=== PATIENT | female | born 1960 | race Caucasian/White ===

== ENCOUNTER 2016-04-03 07:08 | Day surgery (SDC) | payer OTHER, BC ==
[2016-04-02 14:37] VITALS: BMI 32.1
[2016-04-03] MEDS ORDERED: LIDOCAINE HCL/PF 1% SDV 5ML VIAL ONE (07:42)
[2016-04-03] MEDS ORDERED: PROPOFOL 20 ML ONE (07:42)
[2016-04-03 08:26] VITALS: TEMP 97.6
[2016-04-03 09:32] VITALS: BP 124/75; PULSE 70
--- NOTE | 2016-04-06 12:23 | PATH ---
Surgical Pathology Report Patient Name: COLLEEN SORENSEN [facility]. Rec. #: [id number] /Age/Gender: 1960 (Age: 55) / F Account: [id number] Location: [facility]OS[facility] Taken: 04/03/2016 Received: 04/03/2016 Reported: 04/06/2016 Physicians: Franchesca Thomas M.D. Specimen(s) Received A: BX 2ND PORTION DUODENUM & DUODENAL BULB B: BX ANTRUM C: BX DISTAL ESOPHAGUS D: BX MID ESOPHAGUS Clinical History GERD, dysphagia GERD Final Diagnosis A. DUODENUM, SECOND PORTION AND BULB, BIOPSY: DUODENAL MUCOSA WITH CHRONIC INFLAMMATION AND FOCAL COSTA'S GLANDS HYPERPLASIA. NO HISTOLOGIC EVIDENCE OF GLUTEN SENSITIVE ENTEROPATHY (CELIAC DISEASE). B. STOMACH, ANTRUM, BIOPSY: GASTRIC ANTRAL AND OXYNTIC MUCOSA WITH MODERATE CHRONIC GASTRITIS WITH FOCAL INTESTINAL METAPLASIA AND REACTIVE GASTROPATHY. NEGATIVE FOR DYSPLASIA. IMMUNOSTAIN FOR H. PYLORI IS NEGATIVE FOR ORGANISMS. C. ESOPHAGUS, DISTAL, BIOPSY: SQUAMOUS EPITHELIUM WITH CHRONIC INFLAMMATION AND MARKED REFLUX TYPE CHANGES. NO COLUMNAR EPITHELIUM PRESENT (NO INTESTINAL METAPLASIA/FULLER'S ESOPHAGUS IDENTIFIED). D. ESOPHAGUS, MID, BIOPSY: SQUAMOUS EPITHELIUM WITH CHRONIC INFLAMMATION AND MARKED REFLUX TYPE CHANGES. NO EVIDENCE OF EOSINOPHILIC ESOPHAGITIS. Electronically Signed Kwabena Walsh M.D. Gross Description A. Received in formalin, labeled "biopsy second portion of duodenum and duodenal bulb" are 3 gupta, irregular portions of soft tissue ranging from 0.3-0.5 cm in greatest dimension. The specimens are submitted in toto in one cassette. B. Received in formalin, labeled "biopsy antrum" are 3 gupta, irregular portions of soft tissue ranging from 0.3-0.6 cm in greatest dimension. The specimens are submitted in toto in one cassette. C. Received in formalin, labeled "biopsy distal esophagus" are 3 gupta, irregular portions of soft tissue ranging from 0.2-0.4 cm in greatest dimension. The specimens are submitted in toto in one cassette. D. Received in formalin, labeled "biopsy mid esophagus" is a gupta, irregular portion of soft tissue measuring 0.5 cm in greatest dimension. The specimen is submitted in toto in one cassette. 04/03/201604/03/2016
== END 2016-04-03 09:31 | disposition home or self-care (01) ==
LOC: JASU-ENDO 07:08
PROVIDERS: ATTEND Internal Medicine Gastroenterology
PROC: 0DB68ZX Excision of Stomach, Via Natural or Artificial Opening Endoscopic, Diagnostic (ICD-10-PCS; 2016-04-03)
PROC: 0DB98ZX Excision of Duodenum, Via Natural or Artificial Opening Endoscopic, Diagnostic (ICD-10-PCS; 2016-04-03)
PROC: 0DB28ZX Excision of Middle Esophagus, Via Natural or Artificial Opening Endoscopic, Diagnostic (ICD-10-PCS; 2016-04-03)
PROC: 0DB38ZX Excision of Lower Esophagus, Via Natural or Artificial Opening Endoscopic, Diagnostic (ICD-10-PCS; principal; 2016-04-03 08:00)
DX: K21.9 Gastro-esophageal reflux disease without esophagitis (principal); R12 Heartburn; R13.10 Dysphagia, unspecified
CPT/HCPCS: 88305-TC; 88342-TC

== ENCOUNTER 2016-11-02 05:09 | Inpatient (IN) | payer OTHER, BC ==
[2016-10-23 15:30] VITALS: BMI 34.9
[2016-11-02] MEDS ORDERED: BUPIVACAINE HCL/PF 0.5% (5MG/ML) 10 ML VIAL ONE (07:19)
[2016-11-02] MEDS ORDERED: methylPREDNISolone ACET (DEPO) 80 MG/1 ML VIAL ONE (07:19)
[2016-11-02] MEDS ORDERED: MIDAZOLAM HCL 2 MG/2 ML SINGLE DOSE VIAL ONE (07:30)
[2016-11-02] MEDS ORDERED: ROCURONIUM BROMIDE 50 MG/5 ML VIAL ONE (07:33)
[2016-11-02] MEDS ORDERED: SUCCINYLCHOLINE CHLORIDE 200 MG/10 ML VIAL ONE (07:33)
[2016-11-02] MEDS ORDERED: PROPOFOL 20 ML ONE ×12 (07:33→10:36)
--- NOTE | 2016-11-02 08:03 | HP ---
History & Physical Update - History History: No Change - Physical Physical: No Change - Assessment Assessment: No Change - Plan Plan: No Change (This is my first time meeting the patient. Introduced myself and informed patient that I will be assisting Dr. Marshall with todays procedure. She is fine with it.)
[2016-11-02] MEDS ORDERED: BACITRACIN 50,000 UNITS VIAL NR ONE (08:15)
[2016-11-02] MEDS ORDERED: THROMBIN (BOVINE) 5,000 UNIT VIAL TP ONE (08:15)
[2016-11-02] MEDS ORDERED: ceFAZolin SODIUM 1 GM VIAL IVPB ONE (08:22)
[2016-11-02] MEDS ORDERED: BENZOIN/ALOE VERA/STORAX/TOLU 58 ML BOTTLE ONE (08:41)
[2016-11-02] MEDS ORDERED: CEFAZOLIN 2 GM in DEXTROSE 5%-WATER - 100 ML IVPB ONE (08:45)
[2016-11-02] MEDS ORDERED: LIDOCAINE HCL/PF 2% SDV 5ML VIAL ONE (08:52)
[2016-11-02] MEDS ORDERED: DEXAMETHASONE SOD PHOSPHATE 4 MG/1 ML VIAL ONE (08:52)
[2016-11-02] MEDS ORDERED: ceFAZolin SODIUM 1 GM VIAL ONE ×3 (08:52→22:48)
[2016-11-02] MEDS ORDERED: ONDANSETRON 4 MG/2 ML VIAL ONE (08:52)
[2016-11-02] MEDS ORDERED: DEXAMETHASONE SOD PHOSPHATE 4 MG/1 ML VIAL IVPUSH PRN (10:29)
[2016-11-02] MEDS ORDERED: ONDANSETRON 4 MG/2 ML VIAL IVPUSH PRN ×2 (10:29)
[2016-11-02] MEDS ORDERED: PROMETHAZINE HCL 25 MG/1 ML VIAL IVPB PRN (10:29)
--- NOTE | 2016-11-02 11:07 | OP ---
Operative Note - Note: Operative Date: 11/02/16 Pre-Operative Diagnosis: C5-6 and C6-7 DDD; stenosis; radiculopathy Operation: Microdissection; C5-6 and C6-7 discectomies; partial corpectomies C5 , C6, C7; foramenotomies; interbody fusion C5-6 and C6-7; interbody fusion C5-6 and C6-7; anterior instrumentation C5-6-7; traction tongs Findings: degenerative disc space narrowing C5-6 and C6-7; foramenal stenosis B C5-6, C6-7 ; spondylosis; sensitive roots R > L, C5-6 >C6-7 Implants: [place]well 7 mm lordotic interbody implant C6-7 and 6 mm lordotic implants C5-6; Bret spine [employer] Select 40 mm plate and 14 mm screws ( variable angle C5,6 and fixed angle c7) Post-Operative Diagnosis: Same as Pre-op Surgeon: Sam Marshall Hospice Chaplain: Kayden Crawford Anesthesiologist/HISTORY CARD CLERK: Zamzam Salvador MD Anesthesia: General Specimens Removed: C5-6 and C6-7 disc Estimated Blood Loss (mls): 25
[2016-11-02] MEDS ORDERED: ACETAMINOPHEN 325 MG TABLET (FP) PO PRN (11:12)
[2016-11-02] MEDS ORDERED: diazePAM 5 MG TABLET PO SCH ×2 (11:30→15:10)
--- NOTE | 2016-11-02 11:46 | SURG ---
Surgery Surgery Attendant Note Surgery Attendant: Kayden Crawford PA-C Date of Service: 11/02/16 Diagnosis: C5-6 and C6-7 DDD; stenosis; radiculopathy Procedure: Microdissection; C5-6 and C6-7 discectomies; partial corpectomies C5, C6, C7; foramenotomies; interbody fusion C5-6 and C6-7; interbody fusion C5-6 and C6-7; anterior instrumentation C5-6-7; traction tongs I was present for the entirety of the operative procedure. For further detail, please refer to operative report. Visit type - Case Type Case Type: Scheduled Admission - New patient This patient is new to me today: Yes Date on this admission: 11/02/16
[2016-11-02] MEDS ORDERED: HYDROmorphone *PCA* 10MG/50ML DISP.SYRIN PCA ONE (11:49)
--- NOTE | 2016-11-02 11:52 | PN ---
Progress Note (short form) - Note Progress Note: NEUROSURGERY In PACU AF, VSS; O2 sat 100% Mild incisional pain; mild sore throat Hands feel "better" PE: CV-RR; lungs- CTA; And- benign; Ext- NO DVT CN- intact; Motor- 5/5 B UE/LE; Sensation- intact LT Dressing C/D/I SCD's ordered for DVT prophylaxis Iv abx x 24 hours FIndings d/w pt and family
[2016-11-02] MEDS: HYDROmorphone *PCA* 10MG/50ML DISP.SYRIN PCA SCH ×2 (12:08→15:11)
[2016-11-02] MEDS: D5-1/2NS+20 MEQ KCL - 1,000 ML IV SCH ×2 (15:00→21:52)
[2016-11-02] MEDS: DOCUSATE SODIUM 100 MG CAPSULE (FP) PO SCH ×2 (17:47→21:48)
[2016-11-02] MEDS ORDERED: DEXTROSE 5%-WATER - 50 ML IVPB ONE ×2 (18:08→22:49)
[2016-11-02] MEDS: CEFAZOLIN 1 GM in DEXTROSE 5%-WATER - 50 ML IVPB SCH (18:15)
[2016-11-02] MEDS: ALPRAZolam 2 MG TABLET PO SCH ×2 (21:49→21:51)
[2016-11-03] MEDS: HYDROmorphone *PCA* 10MG/50ML DISP.SYRIN PCA SCH ×4 (01:01→23:16)
[2016-11-03] MEDS: CEFAZOLIN 1 GM in DEXTROSE 5%-WATER - 50 ML IVPB SCH (01:20)
[2016-11-03] MEDS: LEVOTHYROXINE NA 75 MCG TABLET (FP) PO SCH (06:41)
[2016-11-03] MEDS: ALPRAZolam 2 MG TABLET PO SCH ×3 (06:41→21:26)
[2016-11-03] MEDS: DOCUSATE SODIUM 100 MG CAPSULE (FP) PO SCH ×3 (06:41→21:26)
--- NOTE | 2016-11-03 08:07 | PN ---
Progress Note (short form) - Note Progress Note: NEUROSURGERY POD #1 Mild incisional pain Mild sore throat B hands better AF, VSS PE: CV- RRR; Lungs: CTA; Abd-benign; Ext- no sign of DVT CN- intact; Motor 4+/5 B UE/LE at least; Sensation- intact to LT Dressing C/D/I- changed C spine x-rays today OOB/PT Adv diet Intra-op findings d/w pt All questions answered I
[2016-11-03] MEDS: PANTOPRAZOLE 20 MG TABLET (FP) PO SCH (09:36)
[2016-11-03] MEDS: FLUoxetine HCL 20 MG CAPSULE (FP) PO SCH (09:36)
[2016-11-03] MEDS: D5-1/2NS+20 MEQ KCL - 1,000 ML IV SCH ×2 (09:37→13:45)
--- NOTE | 2016-11-03 12:33 | PN ---
Progress Note (short form) - Note Progress Note: Anesthesia POD#1 S/P Anterior Cervical Decompression and fusion under GA VSS, using APPLICATION SPECIALIST,no N/V. Walking around. Agree to discontinue the APPLICATION SPECIALIST tomrrow. A/P Continue APPLICATION SPECIALIST today,consider discontinuation tomorrow. No complications seen. Eileen Peterson MD.
--- NOTE | 2016-11-03 13:28 | PATH ---
Surgical Pathology Report Patient Name: COLLEEN SORENSEN Med. Rec. #: [id number] /Age/Gender: 1960 (Age: 55) / F Account: [id number] Location: [facility]/SURG Taken: 11/02/2016 Received: 11/02/2016 Reported: 11/03/2016 Physicians: Sam Marshall M.D. Specimen(s) Received LEVEL 6+7 CERVICAL DISC Clinical History Cervical radiculopathy Final Diagnosis INTERVERTEBRAL DISC, C6-7, ANTERIOR CERVICAL DECOMPRESSION: CARTILAGE WITH DEGENERATIVE CHANGES. Electronically Signed Kwabena Walsh M.D. Gross Description Received in formalin labeled "C6+7 cervical disc" is a 2.5 x 2.0 x 0.3 cm aggregate of gupta fragments of fibrocartilaginous tissue. A development representative portion is submitted in one cassette. /11/02/201611/02/2016
[2016-11-03] MEDS ORDERED: SODIUM CHLORIDE 1,000 ML IV SCH (16:30)
[2016-11-04] MEDS: ALPRAZolam 2 MG TABLET PO SCH (06:18)
[2016-11-04] MEDS: DOCUSATE SODIUM 100 MG CAPSULE (FP) PO SCH (06:19)
[2016-11-04] MEDS: LEVOTHYROXINE NA 75 MCG TABLET (FP) PO SCH (06:19)
[2016-11-04] MEDS ORDERED: oxyCODONE HCL 5 MG TABLET PO PRN ×3 (08:36→08:40)
--- NOTE | 2016-11-04 08:40 | PN ---
Progress Note, Physician Chief Complaint: Pt pain controlled with GROCERY STORE BAGGER, no complications seen. - Current Medication List Current Medications: Active Medications Acetaminophen (Tylenol -) 650 mg PO Q6H PRN PRN Reason: FEVER OR PAIN Alprazolam (Xanax -) 1 mg PO TID [facility] Last Admin: 11/04/16 06:18 Dose: 1 mg Dexamethasone Sodium Phosphate (Decadron Injection -) 4 mg IVPUSH ONCE PRN PRN Reason: NAUSEA AND/OR VOMITING Diphenhydramine HCl (Benadryl Injection -) 12.5 mg IVPUSH ONCE PRN PRN Reason: FOR ITCHING Docusate Sodium (Colace -) 100 mg PO TID [facility] Last Admin: 11/04/16 06:19 Dose: 100 mg Fluoxetine HCl (Prozac -) 20 mg PO DAILY [facility] Last Admin: 11/03/16 09:36 Dose: 20 mg Hydromorphone HCl (Dilaudid Job Analyst -) 10 mg GROCERY STORE BAGGER GR[employer] STORE BAGGER [facility] PRN Reason: Protocol Stop: 11/09/16 10:30 Last Admin: 11/03/16 23:16 Dose: 10 mg Sodium Chloride (Normal Saline -) 1,000 mls @ 42 mls/hr IV ASDIR [facility] Last Admin: 11/03/16 16:39 Dose: 42 mls/hr Levothyroxine Sodium (Synthroid -) 75 mcg PO DAILY@0700 [facility] Last Admin: 11/04/16 06:19 Dose: 75 mcg Pantoprazole Sodium (Protonix -) 20 mg PO DAILY [facility] Last Admin: 11/03/16 09:36 Dose: 20 mg Promethazine HCl (Phenergan Injection -) 12.5 mg IVPB Q6H PRN PRN Reason: NAUSEA AND/OR VOMITING - Objective Vital Signs: Vital Signs Temperature 99.7 F H 11/04/16 06:00 Pulse Rate 89 11/04/16 06:00 Respiratory Rate 20 11/04/16 06:00 Blood Pressure 111/72 11/04/16 06:00 O2 Sat by Pulse Oximetry (%) 97 11/03/16 21:00 Constitutional: Yes: Well Nourished, No Distress, Calm Musculoskeletal: Yes: WNL Neurological: Yes: WNL, Alert, Oriented Assessment/Plan POD#2 s/p C5-7 anterior cervical decompression and fusion under GA. Doing well. D/C GROCERY STORE BAGGER. Start oral pain meds. Oxycodone 10mg q6h.
--- NOTE | 2016-11-04 08:46 | PN ---
Progress Note (short form) - Note Progress Note: NEUROSURGERY POD #2 Mild incisional pain Mild sore throat B hands better Tmax 99.7, AF, VSS PE: CV- RRR; Lungs: CTA; Abd-benign; Ext- no sign of DVT CN- intact; Motor 4+/5 B UE/LE at least; Sensation- intact to LT Dressing C/D/I; some skin edge sensitivity C spine x-rays - satisfactory implant positions; post-op changes OOB/PT Reg diet Intra-op findings d/w pt again Keflex for one week given h/o prior foot injury/infection F/u plan and discharge instructions given Pt requests oxycodone, will change from hydrocodone All questions answered I
[2016-11-04] MEDS ORDERED: PT OWN MED DRAWER 7, Y5N ONE (09:32)
[2016-11-04] MEDS: FLUoxetine HCL 20 MG CAPSULE (FP) PO SCH (09:44)
[2016-11-04] MEDS: PANTOPRAZOLE 20 MG TABLET (FP) PO SCH (09:44)
[2016-11-04 10:13] VITALS: BP 112/74; PULSE 80; TEMP 98.6
--- NOTE | 2016-11-04 10:37 | OP ---
DATE OF OPERATION: 11/02/2016 PREOPERATIVE DIAGNOSES: 1. C5-6 and C6-7 degenerative disk disease with spinal stenosis and cervical radiculopathy. 2. Lumbar spinal stenosis and spondylolisthesis. POSTOPERATIVE DIAGNOSES: 1. C5-6 and C6-7 degenerative disk disease with spinal stenosis and cervical radiculopathy. 2. Lumbar spinal stenosis and spondylolisthesis. ATTENDING SURGEON: Sam Marshall MD MULE DEVELOPER: COOPER De La Cruz ANESTHESIA: General endotracheal. ANESTHESIOLOGIST: Zamzam Salvador MD ESTIMATED BLOOD LOSS: 125 mL PROCEDURE: 1. Preoperative placement and postoperative removal of cranial traction tongs for intraoperative traction (16557). 2. Anterior cervical diskectomy, C5-6 and C6-7. 3. Partial corpectomies at C5, C6, and C7 for cervical spinal cord and proximal nerve root decompression bilaterally at C4-5, C5-6, and C6-7 (60371, 46951, and 40225). 4. Anterior cervical interbody fusion, C5-6 and C6-7 (56399, 31935). 5. Microsurgical dissection with the operative microscope and microsurgical techniques (90463). 6. Utilization of anterior cervical interbody implant with plating system at C5-6 and C6-7 (28741, 50062). FINDINGS: 1. Severe degenerative disk space narrowing at C5-6 and C6-7. 2. Extensive osteophyte with spinal cord and proximal cervical root impingement. 3. Sensitive cervical nerve roots. INDICATION: The patient is a 55-year-old female with intractable neck pain and cervical radiculopathy. Because of intractable symptoms and failure of conservative treatment, she was consented for anterior cervical decompression and fusion with instrumentation. The risks of the procedure include, but are not limited to bleeding to, infection, dural tear with CSF leak, neurological injury, increased thromboembolic risk, and the risks of general anesthesia. The patient understands the indications for the procedure, the procedure in detail, risks and benefits, and alternatives for the treatment of her lumbar condition and wishes to proceed. No guarantees were given for a favorable outcome. Intraoperative SSEP, EMG, and MEP signals were monitored. The risks of surgery include, but are not limited to, bleeding, infection, dural tear with CSF leak, neurological injury, increased thromboembolic risk, hoarseness, swallowing difficulties, the risk of general anesthesia. No guarantees were given for a favorable outcome. PROCEDURE IN DETAIL: After the patient was taken to the operating room, she was placed in supine position. After general anesthesia was induced and appropriate monitoring lines were placed, her head was secured in Garcia horseshoes in neutral position. Shoulders were taped down to the side. The cranial traction tongs were applied with bacitracin ointment. No traction weight was placed until baseline neuromonitoring signals were obtained. Because of the patient's childhood history of seizure, motor evoked potential was not stimulated. After a localizing x-ray was obtained, the patient was sterilely prepped and draped. An incision was now opened with a number 10 blade. An approximately 1-3/4-inch incision was opened. Skin was undermined with Metzenbaum scissors. A self-retaining retractor was inserted at this time. The incision was opened longitudinally with open Metzenbaum scissors. Dissection then proceeded medial to the carotid sheath and lateral to the trachea and esophagus. The omohyoid muscle was retracted medially. At this point, the prevertebral fascia was dissected free. The longus coli muscle was reflected laterally and the edges were coagulated with bipolar electrocautery. A self-retaining radiolucent retractor system was inserted. At this point, the spinal needle was inserted into the C5-6 and C6-7, and another localizing x-ray was obtained. The disk annulus was incised with a number 15 blade but the disk space was so collapsed that the number 15 blade could not cut easily into it. The anterior osteophytes were removed with a rongeur and high-speed pneumatic drill. This annulus with disk material was then cut with a number 15 blade. The disk material was removed with a combination of straight and angled curettes, pituitary rongeur and a Kerrison rongeur. A microscope was brought in at this point for both illumination and magnification. Microsurgical techniques were utilized. Partial corpectomies of the bottom of the vertebral body of C5, the bottom of the vertebral body of C6, and the top of the vertebral body of C7 were carried out with a high-speed pneumatic drill and Kerrison rongeur. Bilateral foraminotomies were carried out at C5-6 and C6-7. The posterior longitudinal ligament was dissected free with an angled curette and resected with Kerrison rongeur. Foraminotomy was accomplished with angled curette and Kerrison rongeur similarly. Epidural hemostasis was obtained with thrombin-filled powder, Gelfoam, and bipolar electrocautery. The traction was slowly increased, first to 5 pounds and then to 10 pounds. The AP diameter of the vertebral body was found to be about 16 mm. The vertical interbody space after decompression was found to be 7 mm at C6-7 and 6 mm at C5-6. Lordotic implants were placed at C6-7 and C5-6. A similar 20-mm titanium plate from [employer] was secured with fixation pins and a screw hole was drilled with the hand-held guide and hand-held drill. A 14-mm variable-angle screw was used at C5 and C6 was a medial angle of 8 degrees. Fixed-angle screws were used at C7 bilaterally. The locking mechanisms were engaged after the screws were tightened. The wounds were irrigated with a copious amount of irrigation. A lateral cervical spine x-ray demonstrated satisfactory position of the implant. At this point, after final SSEP and EMG signals were taken, there was no aberrant signal activity. SSEP signal remained stable throughout. The wounds were once again irrigated and a layer of Surgicel was laid on top of the dissection track as well as the plating system. The esophagus the carotid sheath was inspected and they were all in good condition. The platysmal muscle was closed with 3-0 Vicryl suture, as was the subcutaneous fascia. Skin was closed with 4-0 Vicryl running subcuticular suture. Steri-Strips and sterile occlusive dressing were applied. The patient tolerated the procedure well and was extubated in the operating room. She was moving the bilateral upper and lower extremities well while in the recovery room. All needle and lap counts were correct. The OR timeout procedure was followed. The patient received 1 dose of 1 g of Ancef prior to the procedure. She also received 10 mg of dexamethasone prior to the incision. The patient had had SCDs placed on her which were used during the procedure. The family was updated on the intraoperative findings. SAM MARSHALL M.D. JAYNE/[id number]
[2016-11-04] MEDS ORDERED: CEPHALEXIN MONOHYDRATE 500 MG CAPSULE (UD) PO SCH (12:00)
== END 2016-11-04 10:26 | disposition home or self-care (01) | DRG 473 ==
LOC: JSAMEDAYSX 05:09 → EDSTATUS 08:00 → J8W 13:56
PROVIDERS: ADMIT Neurological Surgery; ATTEND Neurological Surgery
PROC: 01N10ZZ Release Cervical Nerve, Open Approach (ICD-10-PCS; 2016-11-02)
PROC: 0RT30ZZ Resection of Cervical Vertebral Disc, Open Approach (ICD-10-PCS; 2016-11-02)
PROC: 0RG20A0 Fusion of 2 or more Cervical Vertebral Joints with Interbody Fusion Device, Anterior Approach, Anterior Column, Open Approach (ICD-10-PCS; principal; 2016-11-02 08:00)
DX: M50.122 Cervical disc disorder at C5-C6 level with radiculopathy (principal); M48.02 Spinal stenosis, cervical region; M43.12 Spondylolisthesis, cervical region; M50.123 Cervical disc disorder at C6-C7 level with radiculopathy; J44.9 Chronic obstructive pulmonary disease, unspecified; K21.9 Gastro-esophageal reflux disease without esophagitis; E66.8 Other obesity; Z68.34 Body mass index [BMI] 34.0-34.9, adult; M54.89 Other dorsalgia; M13.88 Other specified arthritis, other site
CPT/HCPCS: 72050-TC; 86850; 86900; 86901; 88304-TC; 94010; 94760; 97116-GP; 97161-GP

== ENCOUNTER 2017-08-02 05:05 | Inpatient (IN) | payer OTHER, BC ==
[2017-07-23 14:45] VITALS: BMI 34.5
[~2017-08-02 05:05] MED LIST: BACITRACIN 15 GM TUBE TOPICAL OINTMENT TP ONE; BUPIVACAINE HCL/PF 0.5% (5MG/ML) 10 ML VIAL NR ONE
[2017-08-02] MEDS ORDERED: BACITRACIN 15 GM TUBE TOPICAL OINTMENT ONE (07:06)
[2017-08-02] MEDS ORDERED: THROMBIN (BOVINE) 5,000 UNIT VIAL TP ONE ×2 (07:06→09:01)
[2017-08-02] MEDS ORDERED: MIDAZOLAM HCL 2 MG/2 ML SINGLE DOSE VIAL ONE (08:08)
[2017-08-02] MEDS ORDERED: fentaNYL CITRATE 250 MCG/5 ML VIAL ONE (08:09)
[2017-08-02] MEDS ORDERED: ROCURONIUM BROMIDE 50 MG/5 ML VIAL ONE ×2 (08:13→09:03)
[2017-08-02] MEDS ORDERED: PROPOFOL 20 ML ONE ×17 (08:13→12:07)
[2017-08-02] MEDS ORDERED: ceFAZolin SODIUM 1 GM VIAL IVPB ONE (08:14)
[2017-08-02] MEDS ORDERED: BACITRACIN 50,000 UNITS VIAL NR ONE (09:01)
[2017-08-02] MEDS ORDERED: BUPIVACAINE HCL/PF 0.5% (5MG/ML) 10 ML VIAL NR ONE (13:01)
[2017-08-02] MEDS ORDERED: BACITRACIN 15 GM TUBE TOPICAL OINTMENT TP ONE (13:15)
--- NOTE | 2017-08-02 13:18 | OP ---
Operative Note - Note: Operative Date: 08/02/17 Pre-Operative Diagnosis: L5-S1 spondylolisthesis; extra vertebral (congenital); L4-5 disc bulge; stenosis; radiculopathy Operation: B L4-5 and partial B S1 laminectomies; autologous boen grafts harvest ; L4-5 and L5-S1; discectomies L4-5 and L5-S1; PLIF and posterolateral fusion; interbody implants B L4-5, L5-S1; B L4-5-S1 instrumentation; microdissection Findings: L5-S1 spondylolisthesis; instability L4-5; lateral recess stenosis L5-S1 > L4-5 Implants: [employer] Adrianne 4.5 titanium system; 6.5 x 45 mm screws B L4 and L5 and 7.5 x 40 mm screws B S1 with B 50 mm rods; B L5-S1 11x25 mm interbody implants; B L4-5 13 x 25 mm interbody implant; locking screws x6 Post-Operative Diagnosis: Same as Pre-op Surgeon: Sam Marshall Dipper And Baker: Kayden Crawford Anesthesiologist/FAMILY MANAGER: Zamzam Salvador MD Anesthesia: General Specimens Removed: L4-5 and L5-S1 disc; R L5-S1 facet cyst Estimated Blood Loss (mls): 500 Drains & Tubes with Location: epidural #10 flat JUSTNIE to bulb
[2017-08-02] MEDS ORDERED: BISACODYL 10 MG SUPP.RECT RC PRN (13:19)
[2017-08-02] MEDS ORDERED: ONDANSETRON 4 MG/2 ML VIAL IVPUSH PRN ×2 (13:19→13:51)
[2017-08-02] MEDS ORDERED: PROMETHAZINE HCL 25 MG/1 ML VIAL IVPUSH PRN (13:51)
[2017-08-02] MEDS ORDERED: LACTATED RINGERS SOLUTION 1,000 ML IV SCH (14:00)
--- NOTE | 2017-08-02 14:06 | SURG ---
Surgery Real Estate Agency Principal Note Real Estate Agency Principal: Kayden Crawford PA-C Date of Service: 08/02/17 Diagnosis: L5-S1 spondylolisthesis; extra vertebral (congenital); L4-5 disc bulge; stenosis ; radiculopathy Procedure: Bilateral L4-5 and partial Bilateral S1 laminectomies; autologous bone grafts harvest; L4-5 and L5-S1; discectomies L4-5 and L5-S1; PLIF and posterolateral fusion; interbody implants B L4-5, L5-S1; Bilateral L4-5-S1 instrumentation; microdissection I was present for the entirety of the operative procedure. For further detail, please refer to operative report. Visit type - Case Type Case Type: Scheduled - New patient This patient is new to me today: Yes Date on this admission: 08/02/17
[2017-08-02] MEDS ORDERED: LORazepam 2 MG/ML SDV VIAL ONE (14:07)
[2017-08-02] MEDS: D5-1/2NS+20 MEQ KCL - 20 MEQ/1,000 ML INFUS.BAG IV SCH (14:30)
[2017-08-02] MEDS: HYDROmorphone *PCA* 10MG/50ML DISP.SYRIN PCA SCH ×2 (14:30→21:05)
[2017-08-02 15:19] LABS: HEMATOCRIT 38.3 % (32.4-45.2); HEMOGLOBIN 12.5 GM/dL (10.7-15.3); MCH 32.4 pg (25.7-33.7); MCHC 32.7 g/dl (32.0-36.0); PLATELET COUNT 205 K/MM3 (134-434); RBC 3.87 M/mm3 (3.60-5.2); RDW 14.3 % (11.6-15.6); WHITE BLOOD COUNT 13.7 K/mm3 (4.0-10.0)
[2017-08-02 15:25] LABS: ANION GAP 7 (8-16); BLOOD UREA NITROGEN 17 mg/dL (7-18); CALCIUM 8.3 mg/dL (8.5-10.1); CHLORIDE 107 mmol/L (98-107); CO2 24 mmol/L (21-32); CREATININE 0.6 mg/dL (0.55-1.02); GLUCOSE,RANDOM 104 mg/dL (74-106); POTASSIUM 4.2 mmol/L (3.5-5.1); SODIUM 138 mmol/L (136-145)
--- NOTE | 2017-08-02 16:36 | PN ---
Progress Note (short form) - Note Progress Note: NEUROSURGERY In PACU AF, VSS Drain with minimal output Some drainage from around the drain; dressing changed PE: CV- RR; Lungs- CTA; Abd-benign; Ext- no sign of DVT CN- intact; Motor- 4+ B LE; Sensation- intact LT; DTR- intact Labs OK COnt drain OOB with LSO brace in AM Adv diet as tolerated
[2017-08-02] MEDS ORDERED: D5-1/2NS+20 MEQ KCL - 20 MEQ/1,000 ML INFUS.BAG IV SCH (16:45)
[2017-08-02] MEDS ORDERED: LORazepam 2 MG/ML SDV VIAL IVPUSH ONE ×2 (16:45→17:30)
[2017-08-02] MEDS: DOCUSATE SODIUM 100 MG CAPSULE (FP) PO SCH ×2 (17:44→22:04)
[2017-08-02] MEDS: diazePAM 5 MG TABLET PO SCH ×3 (17:44→20:32)
[2017-08-02] MEDS ORDERED: ceFAZolin SODIUM 1 GM VIAL ONE (18:31)
[2017-08-02] MEDS ORDERED: DEXTROSE 5%-WATER - 50 ML IVPB ONE (18:31)
[2017-08-02] MEDS: CEFAZOLIN 1 GM in DEXTROSE 5%-WATER - 50 ML IVPB SCH (18:38)
[2017-08-02] MEDS ORDERED: HYDROmorphone *PCA* 10MG/50ML DISP.SYRIN PCA ONE (21:01)
[2017-08-02] MEDS ORDERED: ALPRAZolam 0.25 MG TABLET PO ONE (22:00)
[2017-08-02] MEDS: ACETAMINOPHEN 325 MG TABLET (FP) PO PRN (22:51)
[2017-08-03] MEDS: D5-1/2NS+20 MEQ KCL - 20 MEQ/1,000 ML INFUS.BAG IV SCH ×2 (00:51→16:45)
[2017-08-03] MEDS ORDERED: ceFAZolin SODIUM 1 GM VIAL ONE ×2 (01:27→09:01)
[2017-08-03] MEDS ORDERED: DEXTROSE 5%-WATER - 50 ML IVPB ONE ×2 (01:28→09:01)
[2017-08-03] MEDS: CEFAZOLIN 1 GM in DEXTROSE 5%-WATER - 50 ML IVPB SCH ×2 (01:28→09:35)
[2017-08-03] MEDS ORDERED: HYDROmorphone *PCA* 10MG/50ML DISP.SYRIN PCA ONE ×3 (03:57→22:08)
[2017-08-03] MEDS: HYDROmorphone *PCA* 10MG/50ML DISP.SYRIN PCA SCH ×3 (04:01→22:10)
[2017-08-03] MEDS: diazePAM 5 MG TABLET PO SCH ×3 (05:40→21:18)
[2017-08-03] MEDS: DOCUSATE SODIUM 100 MG CAPSULE (FP) PO SCH ×3 (05:41→21:19)
[2017-08-03] MEDS: LEVOTHYROXINE NA 75 MCG TABLET (FP) PO SCH (06:03)
--- NOTE | 2017-08-03 07:18 | OP ---
DATE OF OPERATION: 08/02/2017 PREOPERATIVE DIAGNOSIS: 1. L5-S1 spondylolisthesis with bilateral recess foraminal stenosis. 2. L4-L5 broad-based disk bulge bilateral L4-L5 lateral recess stenosis. 3. Lumbar spine instability. POSTOPERATIVE DIAGNOSIS: 1. L5-S1 spondylolisthesis with bilateral recess foraminal stenosis. 2. L4-L5 broad-based disk bulge bilateral L4-L5 lateral recess stenosis. 3. Lumbar spine instability. ATTENDING SURGEON: Sam Marshall MD HISTOLOGY AIDE: Kayden Crawford PA-C ANESTHESIA: General endotracheal. ANESTHESIOLOGIST: Zamzam Salvador MD BLOOD LOSS: 500 mL. PROCEDURE: 1. Bilateral partial L3, complete bilateral L5, and partial bilateral S1 laminectomy for spinal canal lateral recess decompression including facetectomy and foraminotomy at L4-L5 and L5-S1 for decompression of the thecal sac in the right L4, L5, and S1 nerve roots (31745, 29657, and 04534). 2. Mingo of autologous lamina and spinous process bone for interbody and posterolateral fusion (77544). 3. Microsurgical dissection with operating microscope and microsurgical technique (18828). 4. Bilateral L4-L5 and L5-S1 diskectomy. 5. Posterolateral and interbody fusion of L4-L5 and L5-S1 (83834, 03009). 6. Utilization of intervertebral bony prosthetic device at L4-L5 and L5-S1 ( 00809, 06401-62). 7. Posterior lumbar pedicle screw fixation system placement from L4-S1 with Stardoll spine Adrianne 4.5 titanium system (6.5 x 45 mm screws at L4 and L5 and 7.5 x 40 mm screws at S1 bilaterally connected with 50 mm rods and locking screws) (85379). 8. Intraoperative fluoroscopy for localization and pedicle screw placement (74419-37). FINDINGS: 1. Instability at L4-L5 greater than L5-S1. 2. Thin dura due to chronic compression. 3. Sensitive lumbar nerve root, right greater than left. 4. Lateral recess stenosis L5-S1 greater than L4-L5. INDICATION: The patient is a 56-year-old right-handed female with a history of cervical fusion and hypertension who complains of intractable lower back pain and bilateral lumbar radiculopathy. Because of the intractable symptoms and failure of conservative treatment, she was consented for lumbar decompression and fusion with instrumentation. Risks of the procedure include but are not limited to bleeding , infection, dural tear with CSF leak, neurologic injury, increased thromboembolic risk and the risk of general anesthesia. The patient understands the indications for the procedure, procedure in detail, risks and benefits and alternative treatments for her lumbar condition and wished to proceed. No guarantees were given for a favorable outcome. Intraoperative SSEP and EMG signals were monitored. DESCRIPTION OF PROCEDURE: The patient was taken to the operating room. She was placed in the supine position. After general anesthesia was induced and appropriate lines were placed, a Walden catheter was inserted. Patient was then turned in to the prone position on the Jason frame. All pressure points were checked and padded. Lumbar region was cleaned with alcohol and prepped with Betadine. Localization x-ray was obtained with spinal needle in place. Approximately a 4-inch incision was opened in the midline from L4 to S1. Subperiosteal dissection was carried out with the periosteal elevator and monopolar electrocautery. The facet joint at L3-L4 was also skeletonized. The spinal lamina at L3 was also exposed. The L4, L5, S1 facets were skeletonized as well. A self-retaining retractor was inserted, another localization x-ray was obtained the clamps at the L4-L5 space and the position was verified. The supraspinal and intraspinal ligaments were removed at L4-L5 and L5-S1. The spinous process at L4-L5 was resected with a Kerrison rongeur and morselized for bone graft purposes to be used later on. Complete laminectomy at L5 was carried out as well as L4. A partial laminectomy was carried out at L3 and S1. Facet was burred down with high-speed pneumatic drill. Medial facetectomy was carried out high-speed pneumatic drill and Kerrison rongeurs. Epidural hemostasis was obtained by bipolar electrocautery and thrombin-soaked powdered Gelfoam. After epidural hemostasis was achieved, the nerve root was decompressed at L4, L5, and S1 bilaterally by following the nerve root source to the respected neural foramen with angled curette and Kerrison rongeur. At this point, with general left S1 nerve root retraction, disk annulus was incised with a number 15 blade. This material was removed with a pituitary rongeur and Kerrison rongeurs. Serial disk space scraper was used from 6 to 11 mm. A 12-mm distractor was used. After this was done, attention was turned to the right sided disk space where under transverse wide S1 nerve retraction, disk annulus was incised with a number 15-blade. Disk space was similarly prepared with serially larger disk space scraper. It was then cleaned out with curettes. An 11 x 25 mm interbody implant was inserted and countersunk by about 3-4 mm. Attention was then turned to the left side disk space where the distractor was removed and the disk space was similarly prepared with curettes. The central portion of disk material was removed with down-going curette and up-going pituitary rongeur. The central portion of the disk space was packed with autologous morselized bone graft and bone dust. Another 11 x 25 mm interbody implant was inserted and countersunk by about 3-4 mm. Similarly, attention was turned to the L4-L5 disk space where disk annulus was incised with a number 15 blade with gentle left L5 nerve root retraction. The disk space was prepared with serial larger disk space scraper from 8 to 13 mm. A 14- mm disk space retractor was used and attention was turned to the right side disk space where the annulus was similarly opened and disk space similarly cleaned and prepared. A 13 x 25 mm interbody implant was placed and it was snug. Attention was turned back to the left side where the left side disk space was similarly prepared. Another 13 x 25 mm interbody implant was placed and countersunk similarly by about 3-4 mm. At this point, this portion of the procedure was performed with the use of operative microscope for both illumination and magnification. Microsurgical techniques were utilized. The patient had extremely thin dura and the dura had to be oversewn at the center at L5-S1 as well as left side at L4. This was done with 6-0 Prolene suture. Valsalva maneuver was performed and there was no CSF leak. At this point, the fluoroscope was brought into the lateral AP position. After ascertaining the AP position of the spine, I then turned to the lateral position and it was sterilely draped. The edge of the pedicle groove screws were marked with high-speed pneumatic drill and the screw hole was first made with an awl and then was tapped. This was done under real-time EMG monitoring and lateral fluoroscopic guidance. The screw holes were first awled and then tapped. Then, 6.5 x 45 mm screws were used at L4 and L5 bilaterally and 7.5 x 40 mm screws were uses at S1 bilaterally. A medial angle of approximately 8-10 degrees was utilized. The first screw holes were palpated with a probe prior to screw insertion. There was no aberrant EMG activity. EMG threshold for these screws were tested under 200 hertz and the pedicle screw threshold was greater than 15 milliamps at each pedicle screw from L4 to S1 bilaterally. A 50 mm titanium jovanny was loaded on top of the screws and locked down with locking screws. The screws were compressed prior to final tightening. At this point, the posterolateral surface of the spine was decorticated with a high-speed pneumatic drill and packed with autologous morselized bone graft and bone dust, which was collected earlier. Another Valsalva maneuver was performed and there was no CSF leak. A thin layer of DuraSeal was laid in the epidural space as a precaution. A number 10 flat JUSTINE drain was placed in the epidural space, which came out through a separate stab incision on the right side. Dorsal lumbar musculature hemostasis was obtained using bipolar electrocautery. The dorsal lumbar muscles were reapproximated with 0 Vicryl suture. The dorsal lumbar fascia was closed with 0 Vicryl suture. Subcutaneous fascia was closed with 3-0 Vicryl sutures. The skin was closed with 4-0 Vicryl running subcuticular suture. Steri-Strips and sterile occlusive dressing was applied. SSEP and EMG signals remained stable throughout. The patient was turned back to the supine position and extubated. All needle and lap counts were correct. The patient was moving upper and lower extremities in Recovery. The OR timeout procedure was followed. The patient received one dose of 2 g Ancef prior to the incision. The family was updated as to the intraoperative findings as well as the patient's postoperative condition. Nathaniel [id number] MTDD
--- NOTE | 2017-08-03 07:26 | PN ---
Progress Note (short form) - Note Progress Note: NEUROSURGERY POD #1 On 8W Incisional pain No sciatica No H/A, N/V On MOTOR VEHICLE LICENSE CLERK and valium (has developed some tolerance to pain meds) Tmax 99.5, AF, VSS Drain - 180 cc Some drainage from around the drain; dressing changed PE: CV- RR; Lungs- CTA; Abd-benign; Ext- no sign of DVT CN- intact; Motor- 4+-5/5 B UE and LE; Sensation- intact LT; DTR- intact Some incisional drainage, dressing changed WBC 13.7; Hgb 12.5 Cont drain for now OOB with LSO brace when pain better controlled Adv diet as tolerated Incentive spirometry Add ultram for pain in addition to MOTOR VEHICLE LICENSE CLERK D/C drain tomorrow
[2017-08-03] MEDS: traMADol HCL 50 MG TABLET PO PRN ×3 (08:28→16:46)
[2017-08-03] MEDS ORDERED: PT OWN MED DRAWER 7, Y5N ONE (09:01)
[2017-08-03] MEDS: buPROPion HCL 75 MG TABLET PO SCH (09:34)
[2017-08-03] MEDS: PANTOPRAZOLE 40 MG TABLET (FP) PO SCH (09:35)
[2017-08-03] MEDS: FLUoxetine HCL 20 MG CAPSULE (FP) PO SCH (09:35)
--- NOTE | 2017-08-03 11:40 | PN ---
Progress Note (short form) - Note Progress Note: Anesthesia postop note and pain management follow up 56 y/o F s/p GA for L4S1 PLIF, dilaudid merchandiser seasonal for postop pain management POD#1, vss, aaox3, pain well controlled, no complaints. Continue merchandiser seasonal. No anesthesia complications.
--- NOTE | 2017-08-03 13:10 | PATH ---
Surgical Pathology Report Patient Name: COLLEEN SORENSEN Med. Rec. #: [id number] /Age/Gender: 1960 (Age: 56) / F Account: [id number] Location: [facility] MED/SURG Taken: 08/02/2017 Received: 08/02/2017 Reported: 08/03/2017 Physicians: Sam Marshall M.D. Specimen(s) Received A: FACET SYNOVIAL CYST B: L4, L5 AND S1 DISCS Clinical History L5-S1 spondylolisthesis, L4-L5 spinal stenosis Final Diagnosis A. FACET SYNOVIAL CYST, EXCISION: BENIGN DENSE FIBROCONNECTIVE TISSUE AND CARTILAGE WITH DEGENERATIVE CHANGES AND MICROCALCIFICATIONS. B. DISC L4, L5, S1, POSTERIOR LUMBAR INTERBODY FUSION: INTERVERTEBRAL DISC TISSUE, FIBROADIPOSE TISSUE, SKELETAL MUSCLE, AND DENSE FIBROCONNECTIVE TISSUE. Electronically Signed Tracey Clayton M.D. Gross Description A. Received in formalin labeled "facet synovial cyst," is a 1.4 x 0.8 x 0.5 cm gupta-brown portion of fibrocartilaginous tissue. The specimen is bisected and entirely submitted in one cassette. B. Received in formalin labeled "disc L4, L5, S1," is a 7.0 x 6.4 x 0.8 cm aggregate of multiple portions of gupta-brown fibrocartilaginous tissue. A territory account representative portion is submitted in one cassette. 08/02/2017 saudi08/02/2017
[2017-08-04] MEDS: D5-1/2NS+20 MEQ KCL - 20 MEQ/1,000 ML INFUS.BAG IV SCH ×3 (00:47→15:03)
[2017-08-04] MEDS: diazePAM 5 MG TABLET PO SCH ×3 (05:50→21:34)
[2017-08-04] MEDS: DOCUSATE SODIUM 100 MG CAPSULE (FP) PO SCH ×3 (05:51→21:08)
[2017-08-04] MEDS: LEVOTHYROXINE NA 75 MCG TABLET (FP) PO SCH (06:06)
--- NOTE | 2017-08-04 07:59 | PN ---
Progress Note (short form) - Note Progress Note: NEUROSURGERY POD #2 On 8W Incisional pain No sciatica No H/A, N/V On MANAGER COMMERCIAL and valium Tmax 99.4, AF, VSS Drain - 35 cc Some drainage from around the drain; dressing changed PE: CV- RR; Lungs- CTA; Abd-benign; Ext- no sign of DVT CN- intact; Motor- 4+-5/5 B UE and LE; Sensation- intact LT; DTR- intact LS spine x rays-good alignment L4-5-S1; ileus Some incisional drainage, dressing changed OOB with LSO brace when pain better controlled Adv diet as tolerated Incentive spirometry Bowel regimen Observe wound Added ultram for pain in addition to MANAGER COMMERCIAL D/C drain D/w RN and pt
--- NOTE | 2017-08-04 09:41 | PN ---
Progress Note, Physician Chief Complaint: day #2 s/p L4L5 PLIF - Current Medication List Current Medications: Active Medications Acetaminophen (Tylenol -) 650 mg PO Q6H PRN PRN Reason: FEVER Last Admin: 08/02/17 22:51 Dose: 650 mg Bisacodyl (Dulcolax Suppository -) 10 mg RC DAILY PRN PRN Reason: CONSTIPATION Bupropion HCl (Wellbutrin -) 75 mg PO DAILY [facility] Last Admin: 08/03/17 09:34 Dose: 75 mg Diazepam (Valium -) 10 mg PO Q8H [facility] Last Admin: 08/04/17 05:50 Dose: 10 mg Docusate Sodium (Colace -) 100 mg PO TID [facility] Last Admin: 08/04/17 05:51 Dose: 100 mg Fluoxetine HCl (Prozac -) 20 mg PO DAILY [facility] Last Admin: 08/03/17 09:35 Dose: 20 mg Hydromorphone HCl (Dilaudid Inventory Accountant -) 0 mg LOCKSTITCH BINDER LOCKSTITCH BINDER [facility]; Protocol Stop: 08/09/17 13:52 Last Admin: 08/03/17 22:10 Dose: 10 mg Potassium Chloride/Dextrose/Sod Cl (D5-1/2ns+20 Meq Kcl -) 20 meq in 1,000 mls @ 100 mls/hr IV ASDIR ESDRAS Last Admin: 08/04/17 00:47 Dose: 100 mls/hr Potassium Chloride/Dextrose/Sod Cl (D5-1/2ns+20 Meq Kcl -) 1,000 mls @ 42 mls/ hr IV ASDIR ESDRAS Levothyroxine Sodium (Synthroid -) 75 mcg PO DAILY@0700 [facility] Last Admin: 08/04/17 06:06 Dose: 75 mcg Pantoprazole Sodium (Protonix -) 40 mg PO DAILY [facility] Last Admin: 08/03/17 09:35 Dose: 40 mg Tramadol HCl (Ultram -) 50 mg PO Q4H PRN PRN Reason: PAIN LEVEL 4 - 6 Last Admin: 08/03/17 16:46 Dose: 50 mg - Objective Vital Signs: Vital Signs Temperature 99.4 F 08/04/17 06:00 Pulse Rate 88 08/04/17 06:00 Respiratory Rate 18 08/04/17 06:00 Blood Pressure 115/69 08/04/17 06:00 O2 Sat by Pulse Oximetry (%) 90 L 08/03/17 21:00 Labs: CBC, BMP 08/02/17 14:30 08/02/17 14:30 Assessment/Plan Ultram was added earlier to supplement LOCKSTITCH BINDER. Will continue with LOCKSTITCH BINDER for now
[2017-08-04] MEDS ORDERED: PT OWN MED DRAWER 7, Y5N ONE (10:02)
[2017-08-04] MEDS ORDERED: ACETAMINOPHEN 1000 MG/100 ML VIAL (NON FORMULARY) IVPB PRN (10:06)
[2017-08-04] MEDS: traMADol HCL 50 MG TABLET PO PRN ×2 (10:15→15:02)
[2017-08-04] MEDS: FLUoxetine HCL 20 MG CAPSULE (FP) PO SCH (10:15)
[2017-08-04] MEDS: buPROPion HCL 75 MG TABLET PO SCH (10:15)
[2017-08-04] MEDS: PANTOPRAZOLE 40 MG TABLET (FP) PO SCH (10:15)
[2017-08-04] MEDS: HYDROmorphone *PCA* 10MG/50ML DISP.SYRIN PCA SCH ×2 (14:13→20:50)
[2017-08-04] MEDS ORDERED: HYDROmorphone *PCA* 10MG/50ML DISP.SYRIN PCA ONE (20:49)
[2017-08-05] MEDS: LEVOTHYROXINE NA 75 MCG TABLET (FP) PO SCH (06:35)
[2017-08-05] MEDS: DOCUSATE SODIUM 100 MG CAPSULE (FP) PO SCH ×3 (06:35→22:37)
[2017-08-05 07:42] LABS: HEMATOCRIT 30.6 % (32.4-45.2); HEMOGLOBIN 10.5 GM/dL (10.7-15.3); MCH 33.6 pg (25.7-33.7); MCHC 34.3 g/dl (32.0-36.0); MEAN PLT VOLUME 9.1 fl (7.5-11.1); PLATELET COUNT 156 K/MM3 (134-434); RBC 3.12 M/mm3 (3.60-5.2); RDW 13.8 % (11.6-15.6)
--- NOTE | 2017-08-05 07:46 | PN ---
Progress Note (short form) - Note Progress Note: NEUROSURGERY POD #3 On 8W Incisional pain No sciatica Events over night noted PT stated that she saw a reflection off ceiling light housing and was not taken seriously, thus she called her PD office On RN CARDIOLOGY, valium d/c/'d Tmax 99.8, AF, VSS + passing gas Some drainage from around the drain; dressing changed PE: CV- RR; Lungs- CTA; Abd-benign; Ext- no sign of DVT CN- intact; Motor- 4+-5/5 B UE and LE; Sensation- intact LT; DTR- intact LS spine x rays-good alignment and implants in good position L4-5-S1; ileus No drainage, dressing changed OOB with LSO brace when pain better controlled Adv diet as tolerated Incentive spirometry Bowel regimen Observe wound On ultram for pain in addition to RN CARDIOLOGY Labs pending D/W pt
[2017-08-05] MEDS ORDERED: ALPRAZolam 2 MG TABLET PO PRN (08:09)
[2017-08-05 08:36] LABS: ALBUMIN 2.5 g/dl (3.4-5.0); ANION GAP 10 (8-16); BLOOD UREA NITROGEN 8 mg/dL (7-18); CALCIUM 7.8 mg/dL (8.5-10.1); CHLORIDE 104 mmol/L (98-107); CO2 24 mmol/L (21-32); CREATININE 0.5 mg/dL (0.55-1.02); GLUCOSE,RANDOM 111 mg/dL (74-106); POTASSIUM 4.2 mmol/L (3.5-5.1); SGOT/AST 16 U/L (15-37); SGPT/ALT 11 U/L (12-78); SODIUM 138 mmol/L (136-145)
[2017-08-05 08:38] LABS: ALK PHOS 78 U/L (45-117); BILIRUBIN,TOTAL 0.4 mg/dL (0.2-1.0); TOT PROT 6.1 g/dl (6.4-8.2)
[2017-08-05] MEDS ORDERED: HYDROmorphone *PCA* 10MG/50ML DISP.SYRIN PCA ONE ×2 (09:14→19:40)
[2017-08-05] MEDS: HYDROmorphone *PCA* 10MG/50ML DISP.SYRIN PCA SCH ×2 (09:16→13:56)
[2017-08-05] MEDS ORDERED: ALPRAZolam 0.25 MG TABLET PO PRN (09:40)
--- NOTE | 2017-08-05 10:18 | PN ---
Progress Note (short form) - Note Progress Note: Anesthesia Pain Follow Up S/P Spine surgery POD#3 Pain is still not well controlled. Continue FURRIER DESIGNER for today. Eileen Peterson MD.
[2017-08-05] MEDS ORDERED: PT OWN MED DRAWER 7, Y5N ONE (10:53)
[2017-08-05] MEDS: buPROPion HCL 75 MG TABLET PO SCH (11:12)
[2017-08-05] MEDS: FLUoxetine HCL 20 MG CAPSULE (FP) PO SCH (11:12)
[2017-08-05] MEDS: PANTOPRAZOLE 40 MG TABLET (FP) PO SCH (11:12)
[2017-08-05] MEDS: D5-1/2NS+20 MEQ KCL - 20 MEQ/1,000 ML INFUS.BAG IV SCH ×3 (11:13→18:18)
[2017-08-05] MEDS ORDERED: HYDROmorphone *PCA* 10MG/50ML DISP.SYRIN PCA SCH ×2 (19:40→19:45)
[2017-08-06] MEDS: traMADol HCL 50 MG TABLET PO PRN (04:23)
[2017-08-06] MEDS: DOCUSATE SODIUM 100 MG CAPSULE (FP) PO SCH ×3 (05:35→22:01)
[2017-08-06] MEDS: LEVOTHYROXINE NA 75 MCG TABLET (FP) PO SCH (06:14)
--- NOTE | 2017-08-06 08:30 | PN ---
Progress Note (short form) - Note Progress Note: NEUROSURGERY POD #4 On 8W Incisional pain No sciatica Tmax 99.6, AF, VSS + passing gas, no BM PE: CV- RR; Lungs- CTA; Abd-benign; Ext- no sign of DVT CN- intact; Motor- 4+-5/5 B UE and LE; Sensation- intact LT; DTR- intact WBC 11, Hgb 10.5 LS spine x rays-good alignment and implants in good position L4-5-S1; ileus No drainage OOB with LSO brace/encouraged pt to be active On regular diet Incentive spirometry Additional bowel regimen Observe wound Cont CODING QUALITY ANALYST, d/w anesthesia On ultram for pain Add back valium Labs pending D/W pt
[2017-08-06] MEDS ORDERED: MAGNESIUM HYDROX 2400MG/30ML ORAL SUSPENSION 30 ML CUP PO ONE (08:36)
--- NOTE | 2017-08-06 08:46 | PN ---
Progress Note (short form) - Note Progress Note: Pain Management s/p L4- S1 PLIF with RESIDENTIAL CARE OFFICER for post op pain control postop day 4. RESIDENTIAL CARE OFFICER stopped overnight but patient did not tolerate the pain. Will restart RESIDENTIAL CARE OFFICER with dosing cut in half. Will continue for another day and re-evaluate in the AM
[2017-08-06] MEDS ORDERED: PT OWN MED DRAWER 7, Y5N ONE (09:49)
[2017-08-06] MEDS: FLUoxetine HCL 20 MG CAPSULE (FP) PO SCH (09:50)
[2017-08-06] MEDS: buPROPion HCL 75 MG TABLET PO SCH (09:50)
[2017-08-06] MEDS: PANTOPRAZOLE 40 MG TABLET (FP) PO SCH (09:50)
[2017-08-06] MEDS: HYDROmorphone *PCA* 10MG/50ML DISP.SYRIN PCA SCH ×2 (09:51→17:17)
[2017-08-06] MEDS: oxyCODONE HCL 5 MG TABLET PO PRN ×2 (12:43→20:34)
[2017-08-06] MEDS: diazePAM 5 MG TABLET PO SCH ×2 (13:45→22:01)
[2017-08-07] MEDS: ALPRAZolam 0.25 MG TABLET PO PRN (00:42)
[2017-08-07] MEDS: oxyCODONE HCL 5 MG TABLET PO PRN ×5 (02:27→22:03)
[2017-08-07] MEDS: diazePAM 5 MG TABLET PO SCH ×3 (06:33→21:21)
[2017-08-07] MEDS: DOCUSATE SODIUM 100 MG CAPSULE (FP) PO SCH ×3 (06:33→21:21)
[2017-08-07] MEDS: LEVOTHYROXINE NA 75 MCG TABLET (FP) PO SCH (06:33)
--- NOTE | 2017-08-07 08:21 | PN ---
Progress Note (short form) - Note Progress Note: Anesthesia/Pain Pt seen and examined S:Alert and awake c/o pain O: Vital Signs Temperature 99.1 F 08/07/17 06:00 Pulse Rate 75 08/07/17 06:00 Respiratory Rate 18 08/07/17 06:00 Blood Pressure 115/65 08/07/17 06:00 O2 Sat by Pulse Oximetry (%) 96 08/06/17 21:00 CBC, BMP 08/05/17 06:40 08/05/17 06:40 A/P:S/p PLIF L4-S1 Doing well post op Tolerating PO pain med well per nurse STREET LIGHT LAMP CLEANER stopped Pt request percocet Will Change PO pain meds Jovanny Aguilar MD
[2017-08-07] MEDS: HYDROmorphone *PCA* 10MG/50ML DISP.SYRIN PCA SCH (08:29)
[2017-08-07] MEDS ORDERED: PT OWN MED DRAWER 7, Y5N ONE ×3 (09:42→13:14)
[2017-08-07] MEDS: PANTOPRAZOLE 40 MG TABLET (FP) PO SCH (09:49)
[2017-08-07] MEDS: buPROPion HCL 75 MG TABLET PO SCH (09:49)
[2017-08-07] MEDS: FLUoxetine HCL 20 MG CAPSULE (FP) PO SCH (09:49)
[2017-08-07] MEDS ORDERED: MAGNESIUM CITRATE 300 ML BOTTLE PO ONE (10:36)
--- NOTE | 2017-08-07 10:36 | PN ---
Progress Note (short form) - Note Progress Note: NEUROSURGERY POD #5 On 8W Incisional pain Does not want to be in pain Understands that she is likely dependent/tolerant of narcotic painkillers No sciatica Tmax 99.1, AF, VSS + passing gas, no BM yet PE: CV- RR; Lungs- CTA; Abd-benign; Ext- no sign of DVT CN- intact; Motor- 4+-5/5 B UE and LE; Sensation- intact LT; DTR- intact No drainage OOB with LSO brace/encouraged pt to be active On regular diet Incentive spirometry Additional bowel regimen Observe wound D/C DEPARTMENTAL SHIPPING CLERK Added back valium Mag citrate
[2017-08-08] MEDS: oxyCODONE HCL 5 MG TABLET PO PRN ×6 (02:06→22:58)
[2017-08-08] MEDS: LEVOTHYROXINE NA 75 MCG TABLET (FP) PO SCH (06:12)
[2017-08-08] MEDS: DOCUSATE SODIUM 100 MG CAPSULE (FP) PO SCH ×3 (06:12→21:10)
[2017-08-08] MEDS: diazePAM 5 MG TABLET PO SCH ×3 (06:12→21:10)
[2017-08-08] MEDS ORDERED: PT OWN MED DRAWER 7, Y5N ONE (09:47)
[2017-08-08] MEDS: FLUoxetine HCL 20 MG CAPSULE (FP) PO SCH (09:51)
[2017-08-08] MEDS: buPROPion HCL 75 MG TABLET PO SCH (09:51)
[2017-08-08] MEDS: PANTOPRAZOLE 40 MG TABLET (FP) PO SCH (09:51)
--- NOTE | 2017-08-08 10:13 | PN ---
Progress Note (short form) - Note Progress Note: NEUROSURGERY POD #6 On 8W Incisional pain better OOB yesterday with LSO brace No sciatica Usually does not have regular BM's at home Tmax 99.1, AF, VSS + passing gas, no BM yet PE: CV- RR; Lungs- CTA; Abd-benign; Ext- no sign of DVT CN- intact; Motor- 4+-5/5 B UE and LE; Sensation- intact LT; DTR- intact No drainage OOB with LSO brace/encouraged pt to be more active On regular diet Incentive spirometry Observe wound Try MOM again Plan d/c home tomorrow
[2017-08-08] MEDS ORDERED: MAGNESIUM HYDROX 2400MG/30ML ORAL SUSPENSION 30 ML CUP PO ONE (10:30)
[2017-08-09] MEDS: oxyCODONE HCL 5 MG TABLET PO PRN ×4 (02:48→20:55)
[2017-08-09] MEDS: diazePAM 5 MG TABLET PO SCH ×3 (05:28→22:49)
[2017-08-09] MEDS: DOCUSATE SODIUM 100 MG CAPSULE (FP) PO SCH ×3 (05:29→22:49)
[2017-08-09] MEDS: LEVOTHYROXINE NA 75 MCG TABLET (FP) PO SCH (06:08)
[2017-08-09] MEDS: ACETAMINOPHEN 325 MG TABLET (FP) PO PRN (08:46)
[2017-08-09 08:56] LABS: URINE APPEARANCE CLEAR; URINE BILIRUBIN NEGATIVE (<2.0 mg/dL); URINE COLOR YELLOW; URINE GLUCOSE (UA) NEGATIVE (NEGATIVE); URINE KETONE TRACE (NEGATIVE); URINE LEUK ESTERASE NEGATIVE (NEGATIVE); URINE NITRITE NEGATIVE (NEGATIVE); URINE PROTEIN NEGATIVE (NEGATIVE); URINE UROBILINOGEN NEGATIVE mg/dL (0.2-1.0)
--- NOTE | 2017-08-09 09:56 | PN ---
Progress Note (short form) - Note Progress Note: NEUROSURGERY POD #6 On 8W Incisional pain better OOB yesterday with LSO brace No sciatica + BM x1 Tmax 100.1, AF this am, VSS + passing gas, no BM yet PE: CV- RR; Lungs- CTA; Abd-benign; Ext- no sign of DVT CN- intact; Motor- 4+-5/5 B UE and LE; Sensation- intact LT; DTR- intact No drainage UA negative OOB with LSO brace/encouraged pt to be more active On regular diet Incentive spirometry Observe wound Check CBC and labs Plan d/c home tomorrow
[2017-08-09] MEDS: PANTOPRAZOLE 40 MG TABLET (FP) PO SCH (10:39)
[2017-08-09] MEDS: buPROPion HCL 75 MG TABLET PO SCH (10:40)
[2017-08-09] MEDS: FLUoxetine HCL 20 MG CAPSULE (FP) PO SCH (10:40)
[2017-08-09 11:41] LABS: BASO % 0.7 % (0-2.0); EOS % 1.3 % (0-4.5); HEMATOCRIT 30.8 % (32.4-45.2); HEMOGLOBIN 10.4 GM/dL (10.7-15.3); LYMPH % 18.6 % (8-40); MCH 32.8 pg (25.7-33.7); MCHC 33.8 g/dl (32.0-36.0); MEAN CELL VOLUME 97.1 fl (80-96); MEAN PLT VOLUME 8.4 fl (7.5-11.1); MONO % 6.3 % (3.8-10.2); NEUT % 73.1 % (42.8-82.8); PLATELET COUNT 268 K/MM3 (134-434); RBC 3.17 M/mm3 (3.60-5.2); RDW 14.4 % (11.6-15.6); WHITE BLOOD COUNT 7.7 K/mm3 (4.0-10.0)
[2017-08-09 11:58] LABS: POTASSIUM 3.9 mmol/L (3.5-5.1)
[2017-08-09] MEDS: ALPRAZolam 0.25 MG TABLET PO PRN (12:24)
[2017-08-10] MEDS: ALPRAZolam 0.25 MG TABLET PO PRN (00:27)
[2017-08-10] MEDS: oxyCODONE HCL 5 MG TABLET PO PRN ×2 (03:37→09:53)
[2017-08-10] MEDS: DOCUSATE SODIUM 100 MG CAPSULE (FP) PO SCH (06:07)
[2017-08-10] MEDS: LEVOTHYROXINE NA 75 MCG TABLET (FP) PO SCH (06:07)
[2017-08-10] MEDS: diazePAM 5 MG TABLET PO SCH (06:07)
[2017-08-10] MEDS: ACETAMINOPHEN 325 MG TABLET (FP) PO PRN ×2 (06:08→12:53)
--- NOTE | 2017-08-10 08:18 | PN ---
Progress Note (short form) - Note Progress Note: NEUROSURGERY POD #8 On 8W Incisional pain better OOB yesterday with LSO brace No sciatica Tmax 98.2, AF this am, VSS PE: CV- RR; Lungs- CTA; Abd-benign; Ext- no sign of DVT CN- intact; Motor- 4+-5/5 B UE and LE; Sensation- intact LT; DTR- intact No drainage UA negative WBC 7.7, Hgb 10.4 OOB with LSO brace/encouraged pt to be more active On regular diet Incentive spirometry Observe wound d/c home today Instructions given
--- NOTE | 2017-08-10 08:29 | DS ---
Physical Examination Vital Signs: Vital Signs Temperature 98.2 F 08/10/17 06:00 Pulse Rate 64 08/10/17 06:00 Respiratory Rate 20 08/10/17 06:00 Blood Pressure 119/62 08/10/17 06:00 O2 Sat by Pulse Oximetry (%) 98 08/09/17 21:00 Findings/Remarks: S/p L4-S1 PLIF; pain improvement; wound care and home instructions given; LSO when OOB; pain meds Constitutional: Yes: Well Nourished Eyes: Yes: WNL HENT: Yes: WNL Neck: Yes: WNL Cardiovascular: Yes: WNL Respiratory: Yes: WNL Labs: CBC, BMP 08/09/17 11:15 08/09/17 11:15 Discharge Summary Reason For Visit: POSTERIOR LUMBAR INTERBODY INFUSION Condition: Stable - Instructions Diet, Activity, Other Instructions: Post-op Lumbar Decompression Diet: Regular Activity: Out of bed with back brace. May shower but keep incision line dry. Change dressing afterwards Restrictions: Do not lift anything over 10lbs. Light activity only. Additional Instructions: Keep incision line clean and dry. Change dressing daily. Report any chills, fever (100 or greater), any wound drainage, or any neurological changes to Dr. Marshall. Do not drive for two weeks. Initial postop visit: Call Dr Marshall's office [phone] to be seen in about 2 weeks after surgery Disposition: VNS/HOME HEALTH CARE - Home Medications Comprehensive Discharge Medication List: Ambulatory Orders Fluoxetine HCl [Prozac] 20 mg PO DAILY 02/03/14 Levothyroxine [Synthroid -] 75 mcg PO ACBK 11/24/14 Omeprazole 20 mg PO DAILY 11/02/16 Bupropion HCl [Wellbutrin -] 75 mg PO DAILY 07/23/17 Alprazolam [Xanax] 1 mg PO Q6H 08/02/17 oxyCODONE HCL [Roxicodone -] 15 mg PO Q6H PRN #60 tablet MDD 4 08/09/17 Walker [Ultra-Light Rollator] 1 each MC DAILY #1 each 08/10/17
[2017-08-10] MEDS: buPROPion HCL 75 MG TABLET PO SCH (09:53)
[2017-08-10] MEDS: FLUoxetine HCL 20 MG CAPSULE (FP) PO SCH (09:53)
[2017-08-10] MEDS: PANTOPRAZOLE 40 MG TABLET (FP) PO SCH (09:53)
[2017-08-10] MEDS ORDERED: PT OWN MED DRAWER 7, Y5N ONE (09:53)
[2017-08-10 11:10] VITALS: BP 134/71; PULSE 61; TEMP 98
== END 2017-08-10 13:49 | disposition home health service (06) | DRG 460 ==
LOC: JASU-SURG 05:05 → J8W 13:19 → JASU-SURG 13:19 → J8W 16:55
PROVIDERS: ADMIT Neurological Surgery; ATTEND Neurological Surgery
PROC: 0SG30AJ Fusion of Lumbosacral Joint with Interbody Fusion Device, Posterior Approach, Anterior Column, Open Approach (ICD-10-PCS; 2017-08-02)
PROC: 0SB20ZZ Excision of Lumbar Vertebral Disc, Open Approach (ICD-10-PCS; 2017-08-02)
PROC: 0QN00ZZ Release Lumbar Vertebra, Open Approach (ICD-10-PCS; 2017-08-02)
PROC: 0SB40ZZ Excision of Lumbosacral Disc, Open Approach (ICD-10-PCS; principal; 2017-08-02 08:00)
DX: M43.17 Spondylolisthesis, lumbosacral region (principal); K56.7 Ileus, unspecified; M48.061 Spinal stenosis, lumbar region without neurogenic claudication
CPT/HCPCS: 36415; 71045-TC-FY; 72100-TC-FY; 76000-TC-FY; 80048; 80051; 80053; 81003; 85025; 85027; 86850; 86900; 86901; 87086; 88304-TC; 94010; 94760; 97116-GP; 97161-GP; J0131

== ENCOUNTER 2018-06-15 07:40 | Day surgery (SDC) | payer OTHER, BC ==
[2018-06-14 15:02] VITALS: BMI 36.5
[2018-06-15 11:04] VITALS: BP 118/60; PULSE 68; TEMP 97.9
--- NOTE | 2018-06-16 16:11 | PATH ---
Surgical Pathology Report Patient Name: COLLEEN SORENSEN [facility]. Rec. #: [id number] /Age/Gender: 1960 (Age: 57) / F Account: [id number] Location: [facility]-ENDOSCOPY Taken: 06/15/2018 Received: 06/15/2018 Reported: 06/16/2018 Physicians: Franchesca Thomas M.D. Specimen(s) Received A: RECTAL POLYP B: POLYP SIGMOID C: DISTAL TRANSVERSE COLON D: RIGHT COLON Clinical History Adenoma surveillance, family history of colon cancer Postoperative diagnosis: Colon polyps, diverticulosis Final Diagnosis A. RECTAL POLYPS, POLYPECTOMY: HYPERPLASTIC POLYP, MULTIPLE FRAGMENTS. B. SIGMOID POLYPS, POLYPECTOMY: HYPERPLASTIC POLYP, MULTIPLE FRAGMENTS C. DISTAL TRANSVERSE COLON POLYP X 3, POLYPECTOMY: TUBULAR ADENOMA, ONE FRAGMENT. HYPERPLASTIC POLYP, MULTIPLE FRAGMENTS. SEPARATE COLONIC MUCOSA WITH NO SIGNIFICANT PATHOLOGIC CHANGE. D. RIGHT COLON POLYP, POLYPECTOMY: TUBULAR ADENOMA. Electronically Signed Charissa Lawson M.D. Gross Description A. Received in formalin, labeled "rectal polyps biopsy" are 4 gupta, irregular portions of soft tissue ranging from 0.3-0.4 cm. in greatest dimension. The specimens are submitted in toto in one cassette. B. Received in formalin, labeled "sigmoid polyps biopsy" are 6 gupta, irregular portions of soft tissue ranging from 0.2-0.5 cm. in greatest dimension. The specimens are submitted in toto in one cassette. C. Received in formalin, labeled "distal transverse colon polyps" are 5 gupta, irregular portions of soft tissue ranging from 0.2-0.4 cm. in greatest dimension. The specimens are submitted in toto in one cassette. D. Received in formalin, labeled "right colon polyp biopsy" are 2 gupta, irregular portions of soft tissue averaging 0.3 cm. in greatest dimension. The specimens are submitted in toto in one cassette. 06/15/2018 saudi06/15/2018
== END 2018-06-15 11:00 | disposition home or self-care (01) ==
LOC: JASU-ENDO 07:40
PROVIDERS: ATTEND Internal Medicine Gastroenterology
PROC: 0DBL8ZX Excision of Transverse Colon, Via Natural or Artificial Opening Endoscopic, Diagnostic (ICD-10-PCS; 2018-06-15)
PROC: 0DBN8ZX Excision of Sigmoid Colon, Via Natural or Artificial Opening Endoscopic, Diagnostic (ICD-10-PCS; 2018-06-15)
PROC: 0DBP8ZX Excision of Rectum, Via Natural or Artificial Opening Endoscopic, Diagnostic (ICD-10-PCS; 2018-06-15)
PROC: 0DBK8ZX Excision of Ascending Colon, Via Natural or Artificial Opening Endoscopic, Diagnostic (ICD-10-PCS; principal; 2018-06-15 09:00)
DX: Z12.11 Encounter for screening for malignant neoplasm of colon (principal); Z86.010 Personal history of colon polyps; Z80.0 Family history of malignant neoplasm of digestive organs; K62.1 Rectal polyp; D12.2 Benign neoplasm of ascending colon; D12.5 Benign neoplasm of sigmoid colon; D12.3 Benign neoplasm of transverse colon; K57.30 Diverticulosis of large intestine without perforation or abscess without bleeding; K64.8 Other hemorrhoids
CPT/HCPCS: 88305-TC

== ENCOUNTER 2021-12-02 04:17 | Day surgery (SDC) | payer OTHER, BC ==
[2021-11-28 15:49] VITALS: BMI 35.6
[2021-12-02] MEDS ORDERED: MIDAZOLAM HCL 2 MG/2 ML SINGLE DOSE VIAL ONE (09:13)
[2021-12-02] MEDS ORDERED: KETOROLAC TROMETHAMINE 30 MG/1 ML VIAL ONE (09:49)
[2021-12-02] MEDS ORDERED: LIDOCAINE HCL/PF 2% SDV 5ML VIAL ONE (09:49)
[2021-12-02] MEDS ORDERED: DEXAMETHASONE SOD PHOSPHATE 4 MG/1 ML VIAL ONE (09:49)
[2021-12-02] MEDS ORDERED: ONDANSETRON 4 MG/2 ML VIAL ONE (09:49)
[2021-12-02] MEDS ORDERED: PROPOFOL 20 ML ONE (09:53)
[2021-12-02] MEDS ORDERED: ACETAMINOPHEN INJECTION 100 ML IVPB ONE (09:58)
[2021-12-02] MEDS ORDERED: SUGAMMADEX SODIUM 200 MG/2 ML VIAL ONE (10:10)
[2021-12-02] MEDS ORDERED: oxyCODONE HCL 5 MG TABLET PO PRN (10:26)
[2021-12-02] MEDS ORDERED: ONDANSETRON 4 MG/2 ML VIAL IVPUSH PRN (10:26)
[2021-12-02] MEDS ORDERED: LACTATED RINGERS SOLUTION 1,000 ML IV SCH (10:30)
[2021-12-02 12:09] VITALS: BP 135/73; PULSE 77; RESP 15; TEMP 97.5
== END 2021-12-02 12:16 | disposition home or self-care (01) ==
LOC: JASU-SURG 04:17
PROVIDERS: ATTEND Obstetrics & Gynecology
PROC: 0UDB7ZX Extraction of Endometrium, Via Natural or Artificial Opening, Diagnostic (ICD-10-PCS; 2021-12-02)
PROC: 0UB98ZX Excision of Uterus, Via Natural or Artificial Opening Endoscopic, Diagnostic (ICD-10-PCS; principal; 2021-12-02 09:00)
DX: N95.0 Postmenopausal bleeding (principal); N84.0 Polyp of corpus uteri
CPT/HCPCS: 88305-TC; 94760

== ENCOUNTER 2022-08-28 07:40 | Emergency (ER) | payer OTHER, BC ==
[2022-08-28 07:52] VITALS: BP 150/82; PULSE 67; RESP 17; TEMP 97.8; BMI 34.0
[2022-08-28] MEDS ORDERED: KETOROLAC TROMETHAMINE 15 MG/ML VIAL IM ONE (09:32)
[2022-08-28] MEDS ORDERED: ACETAMINOPHEN 325 MG TABLET (FP) PO ONE (09:32)
[2022-08-28] MEDS ORDERED: ACETAMINOPHEN 325 MG TABLET (FP) ONE (09:46)
[2022-08-28] MEDS ORDERED: KETOROLAC TROMETHAMINE 15 MG/ML VIAL ONE (09:46)
[2022-08-28] MEDS ORDERED: TETANUS AND DIPHTHERIA TOXOID 0.5 ML DISP.SYRIN IM ONE (10:31)
[2022-08-28] MEDS ORDERED: CEFUROXIME AXETIL 500 MG TABLET PO ONE (10:34)
[2022-08-28] MEDS ORDERED: DIPHTH,PERTUSS(ACELL),TET 0.5 ML DISP.SYRIN IM ONE (10:55)
[2022-08-28] MEDS ORDERED: DOXYCYCLINE HYCLATE 100 MG CAPSULE PO ONE ×2 (11:13→11:14)
== END 2022-08-28 11:43 | disposition home or self-care (01) ==
LOC: JERFT 07:40
PROC: 3E0233Z Introduction of Anti-inflammatory into Muscle, Percutaneous Approach (ICD-10-PCS; principal; 2022-08-28)
PROC: 3E0234Z Introduction of Serum, Toxoid and Vaccine into Muscle, Percutaneous Approach (ICD-10-PCS; 2022-08-28)
DX: S50.312A Abrasion of left elbow, initial encounter (principal); S80.212A Abrasion, left knee, initial encounter; M79.10 Myalgia, unspecified site; W01.0XXA Fall on same level from slipping, tripping and stumbling without subsequent striking against object, initial encounter; Y92.480 Sidewalk as the place of occurrence of the external cause
CPT/HCPCS: 73070-TC-LT-FY; 73560-TC-LT-FY; 99284-25

== ENCOUNTER 2022-10-24 17:10 | Inpatient (IN) | payer OTHER, BC ==
[2022-10-24] MEDS ORDERED: SODIUM CHLORIDE 0.9% 500 ML INFUS.BAG IV ONE (17:56)
[2022-10-24] MEDS ORDERED: DIPHTH,PERTUSS(ACELL),TET 0.5 ML DISP.SYRIN IM ONE ×2 (17:57→18:15)
[2022-10-24 18:46] LABS: BASO % 0.5 % (0-2.0); EOS % 1.5 % (0-4.5); HEMATOCRIT 40.5 % (32.4-45.2); HEMOGLOBIN 13.8 GM/dL (10.7-15.3); LYMPH % 35.4 % (8-40); MCH 33.3 pg (25.7-33.7); MCHC 34.2 g/dl (32.0-36.0); MEAN CELL VOLUME 97.4 fl (80-96); MEAN PLT VOLUME 8.4 fl (7.5-11.1); MONO % 2.9 % (3.8-10.2); NEUT % 59.7 % (42.8-82.8); PLATELET COUNT 205 10^3/uL (134-434); RBC 4.16 M/mm3 (3.60-5.2); RDW 14.3 % (11.6-15.6); WHITE BLOOD COUNT 7.6 K/mm3 (4.0-10.0)
[2022-10-24 19:12] LABS: CALCIUM 8.5 mg/dL (8.5-10.1)
[2022-10-24 19:13] LABS: ALBUMIN 3.3 g/dl (3.4-5.0); MAGNESIUM 2.1 mg/dL (1.8-2.4)
[2022-10-24 19:16] LABS: CREATININE 0.8 mg/dL (0.55-1.3)
[2022-10-24 19:18] LABS: BILIRUBIN,TOTAL 0.3 mg/dL (0.2-1); TOT PROT 7.1 g/dl (6.4-8.2)
[2022-10-24 21:11] LABS: URINE APPEARANCE CLEAR; URINE BILIRUBIN NEGATIVE (NEGATIVE); URINE COLOR YELLOW; URINE GLUCOSE (UA) NEGATIVE (NEGATIVE); URINE KETONE NEGATIVE (NEGATIVE); URINE LEUK ESTERASE NEGATIVE (NEGATIVE); URINE NITRITE NEGATIVE (NEGATIVE); URINE PROTEIN NEGATIVE (NEGATIVE); URINE UROBILINOGEN 0.2 mg/dL (0.2-1.0)
[2022-10-24 21:31] LABS: COCAINE, UR NEGATIVE (NEGATIVE); METHADONE, UR NEGATIVE (NEGATIVE); OPIATES, URI NEGATIVE (NEGATIVE); PHENCYCLIDINE,URINE NEGATIVE (NEGATIVE); URINE AMPHETAMINES NEGATIVE (NEGATIVE); URINE BARBITURATES NEGATIVE (NEGATIVE); URINE BENZODIAZEPINES NEGATIVE (NEGATIVE)
[2022-10-24] MEDS ORDERED: REMDESIVIR 200 MG in SODIUM CHLORIDE 250 ML IVPB ONE (22:05)
[2022-10-25] MEDS ORDERED: ACETAMINOPHEN 325 MG TABLET (FP) PO PRN (04:50)
[2022-10-25 05:19] VITALS: BMI 35.5
[2022-10-25] MEDS: LEVOTHYROXINE NA 75 MCG TABLET (FP) PO SCH (06:25)
[2022-10-25] MEDS: PANTOPRAZOLE 40 MG TABLET PO SCH (06:25)
[2022-10-25] MEDS: guaiFENesin 200 MG/10 ML 10 ML UNIT-DOSE CUPS PO PRN (06:31)
[2022-10-25 08:31] LABS: INR 1.07 (0.83-1.09); PROTHROMBIN TIME (PATIENT) 12.4 SEC (9.7-13.0)
[2022-10-25 08:51] LABS: POTASSIUM 3.7 mmol/L (3.5-5.1)
[2022-10-25 08:55] LABS: BASO % 0.6 % (0-2.0); EOS % 1.5 % (0-4.5); HEMATOCRIT 38.4 % (32.4-45.2); HEMOGLOBIN 12.8 GM/dL (10.7-15.3); LYMPH % 41.3 % (8-40); MCH 33.1 pg (25.7-33.7); MCHC 33.4 g/dl (32.0-36.0); MEAN CELL VOLUME 99.2 fl (80-96); MEAN PLT VOLUME 9.3 fl (7.5-11.1); MONO % 2.8 % (3.8-10.2); NEUT % 53.8 % (42.8-82.8); PLATELET COUNT 171 10^3/uL (134-434); RBC 3.87 M/mm3 (3.60-5.2); RDW 13.9 % (11.6-15.6); WHITE BLOOD COUNT 7.6 K/mm3 (4.0-10.0)
[2022-10-25 09:04] LABS: BLOOD UREA NITROGEN 9.4 mg/dL (7-18); MAGNESIUM 1.9 mg/dL (1.8-2.4)
[2022-10-25 09:08] LABS: BILIRUBIN,TOTAL 0.4 mg/dL (0.2-1); CREATININE 0.7 mg/dL (0.55-1.3); TOT PROT 6.5 g/dl (6.4-8.2)
[2022-10-25] MEDS: LIDOCAINE 5% TOPICAL PATCH TP SCH (10:37)
[2022-10-25] MEDS: DEXAMETHASONE SOD PHOSPHATE 10 MG/1 ML VIAL IVPUSH SCH (14:32)
[2022-10-25] MEDS: ALPRAZolam 0.25 MG TABLET PO PRN (14:32)
[2022-10-25] MEDS: REMDESIVIR 100 MG in SODIUM CHLORIDE 250 ML IVPB SCH (14:56)
[2022-10-25 18:52] VITALS: RESP 18
[2022-10-25] MEDS: LIDOCAINE PATCH REMOVAL MC SCH (21:25)
[2022-10-25] MEDS: ZOLPIDEM TARTRATE 5 MG TABLET PO PRN (23:04)
[2022-10-26] MEDS: PANTOPRAZOLE 40 MG TABLET PO SCH (06:25)
[2022-10-26] MEDS: LEVOTHYROXINE NA 75 MCG TABLET (FP) PO SCH (06:25)
[2022-10-26] MEDS: ALPRAZolam 0.25 MG TABLET PO PRN ×2 (06:31→21:13)
[2022-10-26] MEDS: LIDOCAINE 5% TOPICAL PATCH TP SCH (11:03)
[2022-10-26] MEDS: DEXAMETHASONE SOD PHOSPHATE 10 MG/1 ML VIAL IVPUSH SCH (11:03)
[2022-10-26] MEDS: REMDESIVIR 100 MG in SODIUM CHLORIDE 250 ML IVPB SCH (11:04)
[2022-10-26] MEDS: ZOLPIDEM TARTRATE 5 MG TABLET PO PRN (21:13)
[2022-10-26] MEDS: guaiFENesin 200 MG/10 ML 10 ML UNIT-DOSE CUPS PO PRN (21:13)
[2022-10-26] MEDS: LIDOCAINE PATCH REMOVAL MC SCH (21:20)
[2022-10-27] MEDS: PANTOPRAZOLE 40 MG TABLET PO SCH (06:29)
[2022-10-27] MEDS: LEVOTHYROXINE NA 75 MCG TABLET (FP) PO SCH (06:29)
[2022-10-27] MEDS: REMDESIVIR 100 MG in SODIUM CHLORIDE 250 ML IVPB SCH (10:50)
[2022-10-27] MEDS: DEXAMETHASONE SOD PHOSPHATE 10 MG/1 ML VIAL IVPUSH SCH (11:07)
[2022-10-27] MEDS: LIDOCAINE 5% TOPICAL PATCH TP SCH (11:08)
[2022-10-27 11:38] VITALS: BP 145/94; PULSE 69; TEMP 98.3
== END 2022-10-27 15:09 | disposition home or self-care (01) | DRG 179 ==
LOC: JER 17:10 → JERBED 22:06 → J4W 10-25 04:04 → OBSVTOIN 10-26 08:28
PROVIDERS: ADMIT Internal Medicine; ATTEND Family Medicine
PROC: XW033E5 Introduction of Remdesivir Anti-infective into Peripheral Vein, Percutaneous Approach, New Technology Group 5 (ICD-10-PCS; principal; 2022-10-24)
DX: U07.1 COVID-19 (principal); G40.909 Epilepsy, unspecified, not intractable, without status epilepticus; K21.9 Gastro-esophageal reflux disease without esophagitis; F41.8 Other specified anxiety disorders; E03.9 Hypothyroidism, unspecified; R55 Syncope and collapse
CPT/HCPCS: 0241U-QW; 36415; 70450-TC; 71045-TC-FY; 72100-TC-FY; 72125-TC; 73562-TC-LT-FY; 80053; 80307; 81003; 82728; 83615; 83735; 84443; 84484; 85025; 85379; 85610; 86140; 87086; 90715; 93005; 93010; 99285-25; C9399; G0378; J1100

== ENCOUNTER 2023-02-01 04:07 | Day surgery (SDC) | payer OTHER, BC ==
[2023-01-28 09:53] VITALS: BMI 35.6
[~2023-02-01 04:07] MED LIST changes: -BACITRACIN 15 GM TUBE TOPICAL OINTMENT TP ONE; -BUPIVACAINE HCL/PF 0.5% (5MG/ML) 10 ML VIAL NR ONE; +ceFAZolin SODIUM 1 GM VIAL IVPB ONE
[2023-02-01] MEDS ORDERED: MIDAZOLAM HCL 2 MG/2 ML SINGLE DOSE VIAL ONE ×2 (10:26→14:17)
[2023-02-01] MEDS ORDERED: PROPOFOL 20 ML ONE ×4 (10:26→15:46)
[2023-02-01] MEDS ORDERED: LIDOCAINE HCL/PF 2% SDV 5ML VIAL ONE (10:26)
[2023-02-01] MEDS ORDERED: hydrALAZINE HCL 20 MG/ML VIAL ONE (10:47)
[2023-02-01] MEDS ORDERED: LIDOCAINE HCL 1%, 10 MG/ML (20ML VIAL) ONE (12:54)
[2023-02-01] MEDS ORDERED: BUPIVACAINE HCL/PF 0.5% (5MG/ML) 10 ML VIAL ONE ×2 (12:54→14:16)
[2023-02-01] MEDS ORDERED: DEXAMETHASONE SOD PHOSPHATE 10 MG/1 ML VIAL ONE (14:16)
[2023-02-01] MEDS ORDERED: ceFAZolin SODIUM 1 GM VIAL ONE (14:59)
[2023-02-01] MEDS ORDERED: ceFAZolin SODIUM 1 GM VIAL IVPB ONE (15:03)
[2023-02-01] MEDS ORDERED: ONDANSETRON 4 MG/2 ML VIAL ONE (15:09)
[2023-02-01] MEDS ORDERED: DEXAMETHASONE SOD PHOSPHATE 4 MG/1 ML VIAL ONE (15:09)
[2023-02-01 17:59] VITALS: RESP 16; TEMP 95.9
[2023-02-01] MEDS ORDERED: LACTATED RINGERS SOLUTION 1,000 ML IV SCH (18:30)
[2023-02-01] MEDS ORDERED: ONDANSETRON 4 MG/2 ML VIAL IVPUSH PRN (18:30)
[2023-02-01] MEDS ORDERED: oxyCODONE HCL 5 MG TABLET PO PRN (18:30)
[2023-02-01 19:09] VITALS: BP 135/75; PULSE 70
== END 2023-02-01 18:50 | disposition home or self-care (01) ==
LOC: JASU-SURG 04:07
PROVIDERS: ATTEND Orthopaedic Surgery
PROC: 0PSJ04Z Reposition Left Radius with Internal Fixation Device, Open Approach (ICD-10-PCS; principal; 2023-02-01 10:30)
DX: S52.572A Other intraarticular fracture of lower end of left radius, initial encounter for closed fracture (principal); X58.XXXA Exposure to other specified factors, initial encounter; Y93.9 Activity, unspecified; Y92.9 Unspecified place or not applicable; Y99.9 Unspecified external cause status
CPT/HCPCS: 25608; C1713; 76000-TC-FY; 94760; J1100

== ENCOUNTER 2023-08-23 04:24 | Day surgery (SDC) | payer OTHER, BC ==
[2023-08-17 12:55] VITALS: BMI 35.3
[2023-08-23 09:32] VITALS: TEMP 98.1
[2023-08-23 10:56] VITALS: RESP 16
[2023-08-23 11:18] VITALS: BP 127/54; PULSE 53
== END 2023-08-23 11:38 | disposition home or self-care (01) ==
LOC: JASU-ENDO 04:24
PROVIDERS: ATTEND Internal Medicine Gastroenterology
PROC: 0DBL8ZX Excision of Transverse Colon, Via Natural or Artificial Opening Endoscopic, Diagnostic (ICD-10-PCS; 2023-08-23)
PROC: 0DB98ZX Excision of Duodenum, Via Natural or Artificial Opening Endoscopic, Diagnostic (ICD-10-PCS; 2023-08-23)
PROC: 0DB68ZX Excision of Stomach, Via Natural or Artificial Opening Endoscopic, Diagnostic (ICD-10-PCS; 2023-08-23)
PROC: 0DB28ZX Excision of Middle Esophagus, Via Natural or Artificial Opening Endoscopic, Diagnostic (ICD-10-PCS; 2023-08-23)
PROC: 0DB38ZX Excision of Lower Esophagus, Via Natural or Artificial Opening Endoscopic, Diagnostic (ICD-10-PCS; 2023-08-23)
PROC: 0DBN8ZX Excision of Sigmoid Colon, Via Natural or Artificial Opening Endoscopic, Diagnostic (ICD-10-PCS; principal; 2023-08-23 10:00)
DX: Z12.11 Encounter for screening for malignant neoplasm of colon (principal); D12.3 Benign neoplasm of transverse colon; K63.5 Polyp of colon; K64.8 Other hemorrhoids; K57.30 Diverticulosis of large intestine without perforation or abscess without bleeding; K21.00 Gastro-esophageal reflux disease with esophagitis, without bleeding; K44.9 Diaphragmatic hernia without obstruction or gangrene
CPT/HCPCS: 88305-TC; 88342-TC